=== PATIENT | female | born 1980 | race Caucasian/White ===

== ENCOUNTER 2019-08-26 09:22 | Observation (INO) | payer OTHER ==
[~2019-08-26] VITALS: Ht 160 cm; Wt 72.6 kg
[2019-08-26 09:53] VITALS: BP 103/68
--- NOTE | 2019-08-26 10:32 | NUR ---
39 Y/O F C/C BLOOD IN URINE X1 DAY. PER PT "NOTICE PINK REDDISH BLOOD EVERYTIME I WIPE". PER PT IS 6 MONTHS . COMPLAINTS OF LOWER ABDOMINAL PAIN ON AND OFF, 01/21. ALSO STATES OF HAVING FEVER MONDAY/MONDAY AND HAS BEEN TAKING TYLENOL. PT NKA. NO HX. NO RX. SIDE RAIL X1.
--- NOTE | 2019-08-26 11:36 | NUR ---
l&d notified, pt going over for further eval of pelvic pressure
[2019-08-26] MEDS ORDERED: NACL 0.9% 1,000 ML IV SCH (13:05)
[2019-08-26 13:06] VITALS: BP 100/57
[2019-08-26 14:51] LABS: BASOPHILS % (AUTO) 0.3 % (0.0-2.0); EOSINOPHILS # (AUTO) 0.2 K/uL (0-0.4); EOSINOPHILS % (AUTO) 2.2 % (0.0-4.0); HEMOGLOBIN 10.3 g/dL (12.0-16.0); LYMPHOCYTES # (AUTO) 1.6 K/uL (2.5-16.5); LYMPHOCYTES % (AUTO) 18.1 % (20.5-51.1); MEAN CORPUSCULAR HEMOGLOBIN 29 pg (27-31); MEAN CORPUSCULAR HGB CONC 32 g/dL (33-37); MEAN CORPUSCULAR VOLUME 90.9 fL (80-94); MONOCYTES # (AUTO) 0.5 K/uL (0.8-1.0); MONOCYTES % (AUTO) 5.5 % (1.7-9.3); NEUTROPHILS # (AUTO) 6.5 K/uL (1.8-7.7); NEUTROPHILS % (AUTO) 73.9 % (42.2-75.2); PLATELET COUNT (AUTO) 182 K/uL (140-450); RED BLOOD CELL COUNT(AUTO) 3.52 MIL/uL (4.20-5.40); WHITE BLOOD COUNT (AUTO) 8.8 K/uL (4.8-10.8)
[2019-08-26 15:03] LABS: APPEARANCE,URINE CLEAR (CLEAR); BILIRUBIN,URINE NEGATIVE (NEGATIVE); BLOOD, URINE NEGATIVE (NEGATIVE); COLOR,URINE YELLOW (YELLOW); LEUKOCYTE ESTERASE ,URINE 3+ (NEGATIVE); NITRITE, URINE NEGATIVE (NEGATIVE); UGLUCOSE NEGATIVE (NEGATIVE)
[2019-08-26 15:24] LABS: RBC,URINE NONE SEEN /HPF (0-5); WBC,URINE 0-5 /HPF (0-5)
[2019-08-26 15:24] LABS: ALBUMIN 2.2 g/dL (3.4-5.0); ANION GAP 10.8 (8-16); CARBON DIOXIDE 26.1 mmol/L (21-32); CREATININE 0.6 mg/dL (0.6-1.3); POTASSIUM 3.9 mmol/L (3.5-5.1); TOTAL BILIRUBIN 0.2 mg/dL (0.0-1.0)
== END 2019-08-26 16:55 | disposition home or self-care (01) ==
LOC: MED 09:22 → MLD 11:55 → INTOOBSV 11:55
PROVIDERS: ADMIT Obstetrics & Gynecology; ATTEND Obstetrics & Gynecology
DX: O23.43 Unspecified infection of urinary tract in pregnancy, third trimester (principal); O21.2 Late vomiting of pregnancy; O09.523 Supervision of elderly multigravida, third trimester; Z3A.28 28 weeks gestation of pregnancy
CPT/HCPCS: 36415; 80053; 81001; 85025; 87086; 96365; 99282; G0378; J0696; J7060; 96361

== ENCOUNTER 2019-11-15 05:25 | Inpatient (IN) | payer OTHER ==
[2019-11-14 17:03] LABS: APPEARANCE,URINE CLEAR (CLEAR); BILIRUBIN,URINE NEGATIVE (NEGATIVE); BLOOD, URINE NEGATIVE (NEGATIVE); COLOR,URINE YELLOW (YELLOW); LEUKOCYTE ESTERASE ,URINE TRACE (NEGATIVE); NITRITE, URINE NEGATIVE (NEGATIVE); PH,URINE 6.5 (5.0-9.0); UGLUCOSE NEGATIVE (NEGATIVE)
[2019-11-14 17:04] LABS: BASOPHILS # (AUTO) 0.1 K/uL (0.00-0.22); BASOPHILS % (AUTO) 0.5 % (0.0-2.0); EOSINOPHILS # (AUTO) 0.1 K/uL (0-0.4); EOSINOPHILS % (AUTO) 0.6 % (0.0-4.0); HEMATOCRIT 38.6 % (36-48); HEMOGLOBIN 12.5 g/dL (12.0-16.0); LYMPHOCYTES # (AUTO) 1.5 K/uL (2.5-16.5); LYMPHOCYTES % (AUTO) 14.5 % (20.5-51.1); MEAN CORPUSCULAR HEMOGLOBIN 30 pg (27-31); MEAN CORPUSCULAR HGB CONC 33 g/dL (33-37); MEAN CORPUSCULAR VOLUME 92.4 fL (80-94); MONOCYTES # (AUTO) 0.6 K/uL (0.8-1.0); MONOCYTES % (AUTO) 5.4 % (1.7-9.3); NEUTROPHILS # (AUTO) 8.1 K/uL (1.8-7.7); PLATELET COUNT (AUTO) 120 K/uL (140-450); RED BLOOD CELL COUNT(AUTO) 4.18 MIL/uL (4.20-5.40); RED CELL DISTRIBUTION WIDTH 13.8 % (11.6-13.7); WHITE BLOOD COUNT (AUTO) 10.2 K/uL (4.8-10.8)
[~2019-11-15] VITALS: Ht 162.6 cm; Wt 75.7 kg
[2019-11-15] MEDS ORDERED: CITRIC ACID/SODIUM CITRATE 30 ML UDC PO SCH (05:50)
[2019-11-15] MEDS ORDERED: PROMETHAZINE 25 MG/ML VIAL IVP PRN ×2 (05:55→18:45)
[2019-11-15] MEDS ORDERED: CARBOPROST 250 MCG/ML AMP IM PRN (05:55)
[2019-11-15] MEDS ORDERED: LACTATED RINGERS 1,000 ML IV SCH (05:55)
[2019-11-15] MEDS ORDERED: METHYLERGONOVINE 0.2 MG/ML AMP IM PRN ×2 (05:55→08:25)
[2019-11-15 07:05] VITALS: BP 130/69
[2019-11-15] MEDS ORDERED: ceFAZolin 1,000 MG VIAL ONE (07:17)
[2019-11-15] MEDS ORDERED: ePHEDrine 50 MG/ML VIAL ONE (07:28)
[2019-11-15] MEDS ORDERED: BUPIVACAINE-MPF 0.75% 10 ML VIAL INJ ONE (07:28)
[2019-11-15] MEDS ORDERED: ONDANSETRON 4 MG/2 ML VIAL ONE ×2 (07:28→08:42)
[2019-11-15] MEDS ORDERED: DEXAMETHASONE 4 MG/ML VIAL ONE (07:28)
[2019-11-15] MEDS ORDERED: MORPHINE PRES FREE 10 MG/10 ML AMP IV ONE ×2 (07:28→08:51)
[2019-11-15] MEDS ORDERED: PREN-380 PO (07:34)
[2019-11-15] MEDS ORDERED: FERR-252 PO (07:34)
[2019-11-15] MEDS ORDERED: OXYTOCIN 20 UNITS in LACTATED RINGERS 1,000 ML IV SCH ×2 (08:24→11:48)
[2019-11-15] MEDS ORDERED: IBUPROFEN 600 MG TAB PO PRN (08:25)
[2019-11-15] MEDS ORDERED: MEASLES, MUMPS, AND RUBELLA 1 VIAL SQVAC PRN (08:25)
[2019-11-15] MEDS ORDERED: OXYTOCIN 10 UNITS/ML VIAL ONE (08:40)
--- NOTE | 2019-11-15 08:48 | NUR ---
PATIENT HAS BEEN SCREENED AND CATEGORIZED LOW NUTRITION RISK. PATIENT WILL BE SEEN WITHIN 7 DAYS OF ADMISSION. 11/21/[address]
[2019-11-15] MEDS ORDERED: ONDANSETRON 4 MG/2 ML VIAL IVP PRN ×3 (10:20→11:50)
[2019-11-15] MEDS ORDERED: diphenhydrAMINE 50 MG/ML VIAL IVP SCH ×2 (10:23→10:24)
[2019-11-15] MEDS ORDERED: diphenhydrAMINE 50 MG/ML VIAL IVP PRN (11:50)
[2019-11-15] MEDS ORDERED: NALOXONE 0.4 MG/ML VIAL IVP PRN ×3 (11:50)
[2019-11-15] MEDS ORDERED: HYDROmorphone 1 MG/ML AMP IVP PRN (11:50)
[2019-11-15] MEDS ORDERED: MEPERIDINE 25 MG/ML SYR IVP PRN (11:50)
[2019-11-15] MEDS: KETOROLAC 30 MG/ML VIAL IM/IVP SCH ×2 (12:22→18:27)
[2019-11-15] MEDS: diphenhydrAMINE 50 MG/ML VIAL IVP PRN (21:20)
[2019-11-15] MEDS ORDERED: OXYTOCIN 20 UNITS/LR PREMIX 1,000 ML IV ONE (22:29)
[2019-11-16] MEDS: KETOROLAC 30 MG/ML VIAL IM/IVP SCH ×2 (00:30→06:06)
[2019-11-16] MEDS: diphenhydrAMINE 50 MG/ML VIAL IVP PRN (04:26)
[2019-11-16 05:25] LABS: HEMATOCRIT 30.7 % (36-48); HEMOGLOBIN 9.9 g/dL (12.0-16.0); MEAN CORPUSCULAR HGB CONC 32 g/dL (33-37); MEAN CORPUSCULAR VOLUME 93.1 fL (80-94); PLATELET COUNT (AUTO) 99 K/uL (140-450); RED BLOOD CELL COUNT(AUTO) 3.29 MIL/uL (4.20-5.40); RED CELL DISTRIBUTION WIDTH 13.7 % (11.6-13.7); WHITE BLOOD COUNT (AUTO) 14.7 K/uL (4.8-10.8)
[2019-11-16 06:00] LABS: LYMPHOCYTES % (MANUAL) 10 % (20-46); MONOCYTES % (MANUAL) 6 % (5-12)
[2019-11-16 06:01] LABS: BASOPHILS % (MANUAL) 1 % (0-2); EOSINOPHILS % (MANUAL) 0 % (0-4)
[2019-11-16 06:02] LABS: MEAN CORPUSCULAR HEMOGLOBIN 30 pg (27-31)
[2019-11-16] MEDS: BISACODYL 10 MG SUPP RC SCH (09:00)
[2019-11-16] MEDS: oxyCODONE/APAP 5/325 MG 1 TAB TAB PO PRN ×2 (11:23→18:58)
[2019-11-16] MEDS: IBUPROFEN 800 MG TAB PO PRN ×2 (15:13→21:57)
[2019-11-16] MEDS ORDERED: CAMERA MC ONE (20:29)
[2019-11-17] MEDS: oxyCODONE/APAP 5/325 MG 1 TAB TAB PO PRN ×2 (01:08→08:52)
[2019-11-17] MEDS: IBUPROFEN 800 MG TAB PO PRN ×2 (05:21→13:12)
[2019-11-17] MEDS: BISACODYL 10 MG SUPP RC SCH (09:31)
== END 2019-11-17 13:54 | disposition home or self-care (01) | DRG 540 ==
LOC: MLD 05:25 → MFCC 08:32
PROVIDERS: ADMIT Obstetrics & Gynecology; ATTEND Obstetrics & Gynecology
PROC: 10D00Z1 Extraction of Products of Conception, Low, Open Approach (ICD-10-PCS; principal; 2019-11-15 07:30)
DX: O69.81X0 Labor and delivery complicated by cord around neck, without compression, not applicable or unspecified (principal); D62 Acute posthemorrhagic anemia; O34.211 Maternal care for low transverse scar from previous cesarean delivery; Z37.0 Single live birth; Z3A.39 39 weeks gestation of pregnancy
CPT/HCPCS: 36415; 81003; 85025; 86886; 86900; 86901; 87081; J0690; J1100; J1200; J1885; J2270; J2405; J2590; J3490; J7120

== ENCOUNTER 2019-12-02 21:19 | Emergency (ER) | payer OTHER ==
[~2019-12-02] VITALS: Ht 157.5 cm; Wt 64.4 kg
[~2019-12-02 21:19] MED LIST: FERR-252 PO; PREN-380 PO
[2019-12-02 21:25] VITALS: BP 106/58
--- NOTE | 2019-12-02 21:37 | NUR ---
PT AMBULATED TO BATHROOM, STEADY GAIT
--- NOTE | 2019-12-02 21:37 | NUR ---
PT AMBULATED TO BED 4, STEADY GAIT.
--- NOTE | 2019-12-02 21:50 | NUR ---
39 YEAR OLD FEMALE COMPLAINS OF LOWER ABDOMINAL PAIN X MORNING. SHE STATES THAT SHE HAD A C SECTION ON November AND HAS HAD SOME BLOOD AND FLUID DISCHARGE IN THE MORNING. PATIENT STATES SHE HAS PAIN BUT WAS CONTROLLED BY TYLENOL AND IBUPROFEN. PATIENT AOX4, BREATHING EVEN AND UNLABORED, SKIN WARM AND DRY. BED IN LOWEST POSITION, LOCKED, BED RAIL UPX1. TRANSLATION USED. PMH - DENIES ALLERGIES - NKA
[2019-12-02 22:04] VITALS: BP 106/58
--- NOTE | 2019-12-02 22:04 | NUR ---
Patient discharged with v/s stable. Written and verbal after care instructions about wound dehiscence given and explained. Patient alert, oriented and verbalized understanding of instructions. Ambulatory with steady gait. All questions addressed prior to discharge. ID band removed. Patient advised to follow up with PMD. Rx of bacitracin given. Patient educated on indication of medication including possible reaction and side effects. Opportunity to ask questions provided and answered. Translation in sw[place]ish used.
== END 2019-12-02 22:04 | disposition home or self-care (01) ==
LOC: MED 21:19
DX: O90.0 Disruption of cesarean delivery wound (principal); Z98.890 Other specified postprocedural states; Z79.899 Other long term (current) drug therapy
CPT/HCPCS: 81002; 99282; 99283

== ENCOUNTER 2022-04-23 14:12 | Emergency (ER) | payer OTHER ==
[~2022-04-23] VITALS: Ht 152.4 cm; Wt 64.5 kg
[2022-04-23 14:22] VITALS: BP 108/63
[2022-04-23] MEDS: ALBUTEROL SULFATE/IPRATROPIU 3 ML SOL IH ONE (15:16)
[2022-04-23] MEDS: methylPREDNISolone SS 125 MG/2 ML VIAL IVP ONE (15:24)
[2022-04-23] MEDS: NACL 0.9% 1,000 ML IV ONE (15:30)
[2022-04-23 15:38] LABS: BASOPHILS # (AUTO) 0.1 K/uL (0.00-0.22); BASOPHILS % (AUTO) 0.7 % (0.0-2.0); EOSINOPHILS # (AUTO) 0.5 K/uL (0-0.4); HEMATOCRIT 37.6 % (36-48); HEMOGLOBIN 12.5 g/dL (12.0-16.0); LYMPHOCYTES # (AUTO) 1.4 K/uL (2.5-16.5); LYMPHOCYTES % (AUTO) 18.6 % (20.5-51.1); MEAN CORPUSCULAR HEMOGLOBIN 29 pg (27-31); MEAN CORPUSCULAR HGB CONC 33 g/dL (33-37); MEAN CORPUSCULAR VOLUME 86.8 fL (80-94); MONOCYTES # (AUTO) 0.7 K/uL (0.8-1.0); MONOCYTES % (AUTO) 9.1 % (1.7-9.3); NEUTROPHILS # (AUTO) 4.9 K/uL (1.8-7.7); NEUTROPHILS % (AUTO) 64.6 % (42.2-75.2); PLATELET COUNT (AUTO) 212 K/uL (140-450); RED BLOOD CELL COUNT(AUTO) 4.34 MIL/uL (4.20-5.40); RED CELL DISTRIBUTION WIDTH 12.4 % (11.6-13.7); WHITE BLOOD COUNT (AUTO) 7.5 K/uL (4.8-10.8)
[2022-04-23 15:53] LABS: ALBUMIN 3.3 g/dL (3.4-5.0); ANION GAP 8.5 (8-16); CARBON DIOXIDE 30.7 mmol/L (21-32); POTASSIUM 4.2 mmol/L (3.5-5.1); TOTAL BILIRUBIN 0.2 mg/dL (0.0-1.0)
[2022-04-23] MEDS ORDERED: PRED20TA5 PO (17:02)
[2022-04-23] MEDS ORDERED: ALBU0.0912 IH (17:02)
[2022-04-23 17:17] VITALS: BP 116/69
== END 2022-04-23 17:17 | disposition home or self-care (01) ==
LOC: MED 14:12
DX: J45.901 Unspecified asthma with (acute) exacerbation (principal); Z79.899 Other long term (current) drug therapy
CPT/HCPCS: 36415; 71045; 80053; 81025; 83880; 84484; 85025; 93005; 94640; 96361; 96374; 99285; J2930; J7030